=== PATIENT | female | born 1950 | race Caucasian/White ===

== ENCOUNTER 2017-04-09 09:57 | Emergency (ER) | payer MEDICARE, OTHER ==
[~2017-04-09] VITALS: Ht 170.2 cm; Wt 110.0 kg
[~2017-04-09 09:57] MED LIST: ABILIFY2 MG PO; ABILIFY5 MG PO; AMPICILLIN500 M1 PO; BUSPAR10 M1 PO; BUSPAR10 MG PO; CALCI23 PO; CITALOPRAM40 MG PO; CLONAZEPAM1 MG PO; COGENTIN; FISH OIL1000 M1 PO; GLYBURID MCR1.5 MG PO; GLYBURIDE1.25 MG PO; GLYBURIDE2.5 MG PO; KEFLEX500 MG PO; LIORESAL10 MG/TA1 PO; MELOXICAM15 MG PO; MIRTAZAPINE30 MG PO; NEURONTIN100 MG PO; PRAVASTATIN SOD10 MG PO; TIZANIDINE4 MG PO; TRAZODONE100 MG PO
[2017-04-09] MEDS ORDERED: GLYBURIDE2.5 M1 PO (10:20)
[2017-04-09 11:18] LABS: INFLUENZA A NONE DETECTED (NONE DETECT); INFLUENZA B NONE DETECTED (NONE DETECT)
[2017-04-09] MEDS ORDERED: ZITHROMAX250 MG PO (12:26)
[2017-04-09] MEDS ORDERED: PROVENTIL HFA IN (12:26)
[2017-04-09 12:32] VITALS: BP 137/69
== END 2017-04-09 12:28 | disposition home or self-care (01) ==
LOC: ED 09:57
PROVIDERS: Emergency Medicine
DX: B34.9 Viral infection, unspecified (principal); J40 Bronchitis, not specified as acute or chronic; R05 Cough; J34.89 Other specified disorders of nose and nasal sinuses

== ENCOUNTER → 2018-01-06 | Outpatient (REF) | payer MEDICARE, MEDICAID ==
[~2018-01-06] MED LIST changes: +GLYBURIDE2.5 M1 PO; +PROVENTIL HFA IN; +ZITHROMAX250 MG PO
[2018-01-06 07:49] LABS: HEMATOCRIT 37.7 % (37.0-47.0); HEMOGLOBIN 12.6 g/dl (12.0-16.0); MEAN CELL VOLUME 88.3 fL CALC (80.0-100.0); MEAN CORPUSCULAR HGB 29.5 pG CALC (26.0-32.0); MEAN CORPUSCULAR HGB CONC 33.4 g/L CALC (32.0-36.0); RED BLOOD COUNT 4.27 mill/uL (4.20-5.60); RED CELL DISTRI WIDTH 13.3 % (11.5-15.5)
[2018-01-06 08:29] LABS: ALBUMIN 4.3 g/dL (3.2-5.0); ALKALINE PHOSPHATASE 96 u/l (38-126); ANION GAP 12 (6-22 (CALC)); BILIRUBIN, TOTAL 0.4 mg/dL (0.0-1.4); BUN 25 mg/dL (8-23); BUN/CREATININE RATIO 32 (12-20 (CALC)); CARBON DIOXIDE 27 mmol/l (22-30); CHLORIDE 108 mmol/l (95-108); CHOLESTEROL HDL RATIO 3.5 (<4.4 (CALC)); CREATININE 0.8 mg/dL (0.5-1.0); GFR > 60 ML/MIN (>=60 (CALC)); GFR FOR AFR.AMER. > 60 ML/MIN (>=60 (CALC)); HDL CHOLESTEROL 56 mg/dL (>=40); POTASSIUM 4.3 mmol/l (3.5-5.1); SGOT/AST 23 u/l (9-36); SODIUM 142 mmol/l (137-146); TOTAL PROTEIN 7.4 g/dL (6.3-8.2); TOTAL TRIGLYCERIDES 116 mg/dl (30-149); VLDL CHOLESTROL 23 mg/dl (1-41 (CALC))
[2018-01-06 08:30] LABS: CALCULATED LDLCHOLESTEROL 115 mg/dL (62-129 (CALC)); TOTAL CHOLESTEROL 194 mg/dl (0-199)
[2018-01-06 08:58] LABS: TSH, 3RD GENERATION 2.63 uIU/mL (0.47 - 4.68)
== END | disposition home or self-care (01) ==
LOC: LAB 06:58
PROVIDERS: ATTEND Internal Medicine
DX: I10 Essential (primary) hypertension (principal); I50.22 Chronic systolic (congestive) heart failure; E78.49 Other hyperlipidemia; N18.9 Chronic kidney disease, unspecified; E03.9 Hypothyroidism, unspecified; R53.83 Other fatigue; E11.65 Type 2 diabetes mellitus with hyperglycemia

== ENCOUNTER 2019-01-16 18:43 | Emergency (ER) | payer MEDICARE, MEDICAID ==
[~2019-01-16] VITALS: Ht 170.2 cm; Wt 97.7 kg
[2019-01-16] MEDS ORDERED: PROTONIX40 MG PO (19:07)
[2019-01-16] MEDS ORDERED: BACLOFEN20 MG PO (19:07)
[2019-01-16] MEDS ORDERED: PERCOCET 5/321 COMBO PO (19:08)
[2019-01-16] MEDS ORDERED: PRAVSTATIN SODI10 MG PO (19:10)
[2019-01-16 20:15] LABS: HEMOGLOBIN 11.5 g/dl (12.0-16.0); IMMATURE GRANULOCYTES 0.4 % (0.0-5.0); MEAN CELL VOLUME 87.5 fL CALC (80.0-100.0); MEAN CORPUSCULAR HGB 28.8 pG CALC (26.0-32.0); NEUT# 4.13 thou/uL (2.00-7.15); RED BLOOD COUNT 3.99 mill/uL (4.20-5.60); RED CELL DISTRI WIDTH 13.7 % (11.5-15.5)
[2019-01-16 20:25] LABS: ALBUMIN 4.6 g/dL (3.2-5.0); ALKALINE PHOSPHATASE 111 u/l (38-126); ANION GAP 15 (6-22 (CALC)); BILIRUBIN, TOTAL 0.4 mg/dL (0.0-1.4); BUN 11 mg/dL (8-23); BUN/CREATININE RATIO 16 (12-20 (CALC)); CARBON DIOXIDE 24 mmol/l (22-30); CHLORIDE 105 mmol/l (95-108); CREATININE 0.7 mg/dL (0.5-1.0); GFR > 60 ML/MIN (>=60 (CALC)); GFR FOR AFR.AMER. > 60 ML/MIN (>=60 (CALC)); POTASSIUM 3.5 mmol/l (3.5-5.1); SGOT/AST 22 u/l (9-36); SODIUM 140 mmol/l (137-146); TOTAL PROTEIN 7.5 g/dL (6.3-8.2)
[2019-01-16 20:27] LABS: HEMATOCRIT 34.9 % (37.0-47.0)
[2019-01-16] MEDS ORDERED: TAM75CAP PO ×2 (20:30→20:31)
[2019-01-16] MEDS ORDERED: TESSALON PER100 MG PO (20:34)
[2019-01-16 20:40] VITALS: BP 142/77
== END 2019-01-16 20:40 | disposition home or self-care (01) ==
LOC: ED 18:43
PROVIDERS: Family Medicine
DX: J10.1 Influenza due to other identified influenza virus with other respiratory manifestations (principal); E11.9 Type 2 diabetes mellitus without complications